=== PATIENT | male | born 2000 | race Caucasian/White ===

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

== ENCOUNTER 2021-07-07 06:49 | Emergency (ER) | payer BC, SELFPAY ==
[2021-07-07 07:08] VITALS: BP 142/83; PULSE 75; RESP 18; TEMP 37.1; O2SAT 96; BMI 25.1
--- NOTE | 2021-07-07 07:13 | XR_ITS ---
PROCEDURE INFORMATION: Exam: XR Chest Exam date and time: 07/07/2021 7:13 AM Age: 20 years old Clinical indication: Cough; Additional info: Cough x 3 days. Headache. PT had covid back in oct TECHNIQUE: Imaging protocol: XR of the chest. Views: 2 views. COMPARISON: CR XR SHOULDER RT MIN 2V 03/23/2019 2:45 PM FINDINGS: Lungs: Hyperinflation, without acute airspace disease. Pleural spaces: No pleural effusion. Heart/Mediastinum: Normal configuration of the heart. Bones/joints: Unremarkable. IMPRESSION: No acute airspace or pleural disease.
[2021-07-07 07:27] LABS: Coronavirus 19, PCR Not Detected (NotDetected); Influenza B, PCR Not Detected (NotDetected)
[2021-07-07 07:30] LABS: Basophils % 0.4 % (0.1-2.0); Eosinophils # 0.1 K/mm3 (0.0-0.4); Eosinophils % 1.2 % (0.1-12.0); Hematocrit 43.4 % (42.0-52.0); Lymphocytes # 0.6 K/mm3 (0.7-4.5); Lymphocytes % 11.7 % (10-50); Mean Corpuscular HGB Conc 34.5 g/dL (31.8-35.4); Mean Corpuscular Hemoglobin 30.6 pg (27.0-31.2); Mean Corpuscular Volume 88.6 fl (80-94); Mean Platelet Volume 7.3 fl (7.4-10.4); Monocytes # 0.5 K/mm3 (0.1-1.0); Monocytes % 9.1 % (1.7-9.3); Neutrophils # 4.2 K/mm3 (1.8-7.8); Neutrophils % 77.6 % (37.0-80.0); Platelet Count 264 K/mm3 (142-424); Red Cell Distribution Width 12.6 % (11.5-17.5); White Blood Count 5.4 K/mm3 (4.5-13.0)
--- NOTE | 2021-07-07 07:36 | PC.NURSE ---
Pt is resting comfortably in bed.
--- NOTE | 2021-07-07 07:37 | PC.NURSE ---
pt to rad.
[2021-07-07 07:38] LABS: Chloride 103 mmol/L (98-107); Potassium 3.7 mmoL/L (3.5-5.1); Sodium 137 mmol/L (136-145)
[2021-07-07 07:40] LABS: Blood Urea Nitrogen 11 mg/dl (9-20)
[2021-07-07 07:41] LABS: Alanine Aminotransferase 14 U/L (12-78); Albumin Level 4.6 g/dl (3.5-5.0); Albumin/Globulin Ratio 1.6 (1.1-1.8); Alkaline Phosphatase 114 U/L (38-126); Anion Gap 14.7 mEq/L (5-15); Aspartate Amino Transferase 26 U/L (17-59); Bilirubin,Total 0.9 mg/dl (0.2-1.3); Calcium 8.9 mg/dl (8.4-10.2); Carbon Dioxide 23 mmol/L (22.0-30.0); Creatinine Clearance Estimated 129 mL/min (50-200); Estimated Glomerular Filt Rate 95 ml/min (>60); GFR (African American) 115 ML/MIN (>60); Globulin 2.9 g/dL (1.3-3.2); Glucose 104 mg/dl (74-100); Total Protein,Serum 7.5 g/dl (6.3-8.2)
[2021-07-07 07:51] LABS: Influenza A, PCR Detected (NotDetected)
--- NOTE | 2021-07-07 08:04 | HMH.EDGENADL ---
ED Disposition Clinical Impression: Influenza A Disposition: Home, Self-Care Condition on Discharge: Fair Instructions: DI for Influenza -- Adult Additional Instructions: Tamiflu as prescribed. Tylenol or ibuprofen for pain and fever. Rest and drink plenty of fluids. Isolate yourself for 4 to 5 days from the onset of illness and until you have had no fever for 24 hours. Follow-up with your primary care provider if not improving in 4 to 5 days or if worsening symptoms such as shortness of breath or persistent vomiting. Prescriptions: Oseltamivir Phosphate [Tamiflu 75mg Capsule] 75 mg PO BID #10 cap Transmission Status: [facility] Referrals: Provider,Referral, [Primary Care Provider] - - Critical Care Critical Care Time: No Attestation: On 07/07/21, the high probability of a clinically significant, sudden or life threatening deterioration of the following system(s) required my full and direct attention, intervention and personal management. The time I documented below is in addition to time spent performing reported procedures but includes the following listed in this critical care notation. Medical Decision Making - Vik Inquiry Pt receiving controlled substance: No Vital Signs: 07/07/21 07:08 Temperature 98.7 F Temperature Source Oral Pulse Rate [Right Radial] 75 Respiratory Rate 18 Blood Pressure [Right Arm] 142/83 H Blood Pressure Mean [Right Arm] 102 02 Sat by Pulse Oximetry 96 Oxygen Delivery Method Room Air - Lab Data Lab Results 07/07/21 07:14: WBC 5.4, RBC 4.90, Hgb 15.0, Hct 43.4, MCV 88.6, MCH 30.6, MCHC 34.5, RDW 12.6, Plt Count 264, MPV 7.3 L, Neut % (Auto) 77.6, Lymph % (Auto) 11.7, [place] % (Auto) 9.1, Eos % (Auto) 1.2, Baso % (Auto) 0.4, Neut # (Auto) 4.2, Lymph # (Auto) 0.6 L, [place] # (Auto) 0.5, Eos # (Auto) 0.1, Baso # (Auto) 0.0 07/07/21 07:14: Sodium 137, Potassium 3.7, Chloride 103, Carbon Dioxide 23, Anion Gap 14.7, BUN 11, Creatinine 1.00, Estimated Creat Clear 129, Estimated GFR 95, Est GFR ( Amer) 115, Glucose 104 H, Calcium 8.9, Total Bilirubin 0.9, AST 26, ALT 14, Alkaline Phosphatase 114, Total Protein 7.5, Albumin 4.6, Globulin 2.9, Albumin/Globulin Ratio 1.6 07/07/21 07:14: SARS-CoV-2 (PCR) Not detected, Influenza A Untype (PCR) Detected A, Influenza Type B (PCR) Not detected Result diagrams: 07/07/21 07:14 07/07/21 07:14 Orders (Tests/Meds): ORDERS Category Date Time Status Chest XR 2 view (NOT portable) [XR chest 2V] Stat Exams 07/07/21 07:13 Taken General Adult HPI - General Chief complaint: Upper Respiratory Infection Stated complaint: Weakness;body aches;cough;runny nose Time Seen by Provider: 07/07/21 08:04 Mode of Arrival: Ambulatory Limitations: No Limitations Description of Symptoms (Recalled from ER Triage Doc. by RN): pt to ed c/o headache, congestion, productive cough, and a sore throat since tuesday. pt denies soa or cp. pt denoes fevers. pt denies n/v/d and abd pain. - History of Present Illness HPI narrative: States I think I have the flu . Symptoms came on on 07/05/2021. He says he saw [place] on Tuesday night and sat next to somebody who was doing a lot of coughing. He was not vaccinated against influenza this year. He has not been exposed to any specific illnesses such as COVID-19. His main complaints are headache, body aches, dry cough, and dry throat. Nausea but no vomiting or diarrhea. - Related Data Previous Rx's Medication Instructions Recorded Azithromycin [Z-German 250mg Tab*] 250 mg PO UD DOSE PK #6 tab 08/16/19 Fluticasone Propionate [Flonase 1 spr NS DAILY #1 bottle 08/16/19 50mcg nasal spray 16gm] methylPREDNISolone [Medrol 4mg 4 mg PO DIRECTED #21 tab 08/16/19 tab] Oseltamivir Phosphate [Tamiflu 75 mg PO BID #10 cap 07/07/21 75mg Capsule] Allergies Allergy/AdvReac Type Severity Reaction Status Date / Time No Known Allergies Allergy Pedro
[2021-07-07 08:31] VITALS: BP 127/70; PULSE 68; RESP 18; TEMP 37.2; O2SAT 98
== END 2021-07-07 08:31 | disposition home or self-care (01) ==
PROVIDERS: Emergency Medicine; Emergency Provider Emergency Medicine
DX: J10.1 Influenza due to other identified influenza virus with other respiratory manifestations (principal); Z20.822 Contact with and (suspected) exposure to COVID-19
CPT/HCPCS: 71046; 80053; 85025; 96374; 99283; C9803; U0003; U0005

== ENCOUNTER 2021-09-08 11:52 | Emergency (ER) | payer OTHER, SELFPAY ==
--- NOTE | 2021-09-08 12:14 | XR_ITS ---
FINAL REPORT CLINICAL HISTORY: pain...shielded...no trauma FINDINGS: RIGHT ANKLE: Three views of the right ankle were obtained. There is no acute fracture or dislocation. The joint spaces and mortise are intact. There is no soft tissue abnormality. IMPRESSION: No acute process. Reviewed, Interpreted and Dictated by Mario Noel MD Transcribed by Quinton Broussard Authenticated by Mario Noel MD on 09/08/2021 01:31:[address] [facility]
--- NOTE | 2021-09-08 12:14 | XR_ITS ---
FINAL REPORT CLINICAL HISTORY: pain..no trauma shielded FINDINGS: 3 views of the right foot were obtained. There is no acute fracture or dislocation. The joint spaces are intact. The soft tissues are unremarkable. IMPRESSION: No acute process. Reviewed, Interpreted and Dictated by Mario Noel MD Transcribed by Quinton Broussard Authenticated by Mario Noel MD on 09/08/2021 01:31:[address] [facility]
[2021-09-08 12:17] VITALS: BP 142/68; PULSE 58; RESP 14; TEMP 37.3; O2SAT 97; BMI 25.1
--- NOTE | 2021-09-08 12:23 | HMH.EDUTC ---
[facility] [place] Clinical Impression: Right foot pain Disposition: Home, Self-Care Condition on Discharge: Good Instructions: DI for Metatarsalgia, DI for Foot Pain Additional Instructions: Rest the extremity, Elevate the extremity as tolerated while you are resting. Take ibuprofen for pain. I sent in a prescription to your pharmacy. Follow up with Dr. Ambrocio (podiatry). Sometimes there can be fractures that don't show up well on the first set of x-rays. So, you should follow up if you continue to have symptoms. I put in a referral but you need to call his office and schedule an appointment. Follow up with your regular doctor. GO TO THE ER FOR ANY WORSENING SYMPTOMS Prescriptions: Ibuprofen [Ibuprofen 600mg Tablet] 600 mg PO Q6HP PRN #30 tab PRN Reason: Mild Pain Transmission Status: [facility] Referrals: Provider,Referral, [Primary Care Provider] - Emily Ambrocio DPM [Staff Physician] - Forms: Work/School Release Time of Disposition: 13:17 Medical Decision Making - Medical Records Medical records reviewed: No: I reviewed the patient's medical records. - Vik Inquiry Pt receiving controlled substance: No Vital Signs: 09/08/21 12:17 Temperature 99.1 F Temperature Source Oral Pulse Rate [Left] 58 L Respiratory Rate 14 Blood Pressure [Right Arm] 142/68 H Blood Pressure Mean [Right Arm] 92 02 Sat by Pulse Oximetry 97 Orders (Tests/Meds): ORDERS Category Date Time Status Ankle XR -Right minimum 3 Views [XR ankle RT min 3V] Exams 09/08/21 12:14 Taken Stat XR foot RT min 3V Stat Exams 09/08/21 12:14 Taken - Radiology Data #1 Image(s): Foot/Toes Image Reviewed: Yes I reviewed the patient's radiology image, Yes I have reviewed radiologist's interpretation Preliminary Findings: Normal/NAD #2 Image(s): Ankle Image Reviewed: Yes I reviewed the patient's radiology image, Yes I have reviewed radiologist's interpretation Preliminary Findings: Normal/NAD [facility] [place] - General Stated complaint: rt foot/ankle pain no accident Time Seen by Provider: 09/08/21 12:23 Mode of Arrival: Ambulatory Source of Information: Patient Limitations: No Limitations Description of Symptoms (Recalled from Triage Doc. by RN): pt states she woke up about two weeks ago with R outer foot pain. 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 pt states the pain is getting worse. HEENT Symptoms (Recalled from RN notes): No Resp Symptoms (Recalled from RN notes): No Skin Symptoms (Recalled from RN notes): No MS Symptoms (Recalled from RN notes): Yes Functional Status (Recalled from RN notes): wnl - History of Present Illness Provider Complaint: He states that he has had right foot pain intermittently for the past 2 weeks. He denies any known injury. Having to walk a lot at school makes his pain worse. He denies any history of similar issues. - Related Data Previous Rx's Medication Instructions Recorded Azithromycin [Z-German 250mg Tab*] 250 mg PO UD DOSE PK #6 tab 08/16/19 Fluticasone Propionate [Flonase 1 spr NS DAILY #1 bottle 08/16/19 50mcg nasal spray 16gm] methylPREDNISolone [Medrol 4mg 4 mg PO DIRECTED #21 tab 08/16/19 tab] Oseltamivir Phosphate [Tamiflu 75 mg PO BID #10 cap 07/07/21 75mg Capsule] Ibuprofen [Ibuprofen 600mg 600 mg PO Q6HP PRN #30 tab 09/08/21 Tablet] Allergies Allergy/AdvReac Type Severity Reaction Status Date / Time No Known Allergies Allergy Verified 11/13/18 08:43 - Worker's Comp Is this a Worker's Comp case?: No H History - Hepatitis A Screen Drug use history?: No High risk sexual behaviors?: No History of sexually transmitted infection?: No Currently employed?: No Childcare worker?: No Do you have indoor plumbing?: Yes Do you have electricity?: Yes Attestation statement:: This patient has been screened for Hepatitis A risk factors. I have reviewed the patient's past medical
[2021-09-08 13:26] VITALS: BP 142/68; PULSE 58; RESP 14; TEMP 37.3
== END 2021-09-08 13:27 | disposition home or self-care (01) ==
PROVIDERS: Emergency Provider Nurse Practitioner Family
DX: M79.671 Pain in right foot (principal)
CPT/HCPCS: 73610; 73630; 99202; G0463

== ENCOUNTER 2022-03-10 13:48 | Emergency (ER) | payer OTHER, SELFPAY ==
[2022-03-10 15:01] VITALS: BP 110/75; PULSE 71; RESP 19; TEMP 36.9; O2SAT 100
--- NOTE | 2022-03-10 15:17 | EXP.UTC ---
Discharge Plan Disposition Patient Disposition: Home, Self-Care Condition: Good Prescriptions Prescriptions: New [id number] [Bromfed DM] 2-30-10 mg/5 mL Syrup 10 ml PO Q4H PRN (Reason: Cough) Qty: 240 0RF No Action ibuprofen 600 MG tablet 600 mg PO Q6HP PRN (Reason: Mild Pain) Qty: 30 0RF azithromycin 250 MG tablet 250 mg PO UD DOSE PK Qty: 6 0RF Rx Instructions: Take two (2) tablets today, then one (1) tablet days #2 thru #5 methylprednisolone 4 MG tablet 4 mg PO DIRECTED Qty: 21 0RF Rx Instructions: Take as directed on package instructions fluticasone propionate 120 SPR/BOT bottle 1 spr NS DAILY Qty: 1 0RF Rx Instructions: each nostril daily oseltamivir 75 MG capsule 75 mg PO BID Qty: 10 0RF Referrals Follow up/Referrals: Provider,Referral, MD [Primary Care Provider] - Enter time for follow up Activity Restrictions/Add. Instructions Additional Instructions/Restrictions: *Monitor Temp, Over the counter Motrin or Tylenol as directed/as needed Tylenol every 4 hours and Motrin every 6 hours (as long as your family doctor has told you that you can take it) for fever or pain. and straight to ER if unable to lower temp less than 101.0 after medication given *Warm salt water gargles may help to soothe the throat *Throat Lozenges? *Warm fluids like tea with honey may help to soothe the throat? *Sleep elevated *Humidifier/Vaporizer *Bromfed may cause drowsiness. Know how it effects you (your child) before driving, caring for small child, or sending your child to school. Not other antihistamines/allergy medications while taking bromfed Follow up IMMEDIATELY for new or worsening symptoms or no Noticeable improvement over the next 48-72 hours. 911 for difficulty breathing or swallowing You were tested for today for COVID19 your test result should be back in the next 24-48 hours, you may check your result on the [facility] Portal Make sure to take your Vitamins Vit. C Vit D and Zinc if you can take them Clinical Impressions Clinical Impression: Viral upper respiratory tract infection with cough, Cough Stand Alone Forms Stand Alone Forms: [facility] School Release, [facility] Work Release Discharge ED Provider: Yuly Weaver [facility] [place] HPI General Stated complaint: cough congestion Time Seen by Provider: 03/10/22 15:10 Mode of Arrival: Ambulatory Source of Information: Patient Limitations: No Limitations Description of Symptoms (Recalled from Triage Doc. by RN): patient comes in with complaints of cough, bodyaches, fever since last night. 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 but unsure if he was exposed to COVID or anything but today he was feeling worse and unable to attend his classes Related Data Previous Rx's Medication Instructions Recorded azithromycin 250 mg tablet 250 mg PO UD DOSE PK #6 tabs 08/16/19 fluticasone propionate 50 1 spr NS DAILY ##1 08/16/19 mcg/actuation nasal spray,suspension methylprednisolone 4 mg tablet 4 mg PO DIRECTED #21 tabs 08/16/19 oseltamivir 75 mg capsule 75 mg PO BID #10 caps 07/07/21 ibuprofen 600 mg tablet 600 mg PO Q6HP PRN Mild Pain #30 09/08/21 tabs [id number] 10 ml PO Q4H PRN Cough #240 mL 03/10/22 2 mg-30 mg-10 mg/5 mL oral syrup (Bromfed DM) Allergies Allergy/AdvReac Type Severity Reaction Status Date / Time No Known Allergies Allergy Verified 03/10/22 15:07 Worker's Comp Is this a Worker's Comp case?: No [facility] (System 11/13/18 @ 0
[2022-03-10 15:18] LABS: UTC Influenza A Antigen Negative (Negative); UTC Influenza B Antigen Negative (Negative)
[2022-03-10 16:01] VITALS: BP 110/75; PULSE 71; RESP 19; TEMP 36.9
== END 2022-03-10 16:07 | disposition home or self-care (01) ==
PROVIDERS: Emergency Provider Nurse Practitioner
DX: U07.1 COVID-19 (principal)
CPT/HCPCS: 87804; 99212; C9803; G0463; U0003; U0005

== ENCOUNTER 2022-03-15 13:46 | Emergency (ER) | payer OTHER, SELFPAY ==
[2022-03-15 14:52] VITALS: BP 0/0; PULSE 0; RESP 0; TEMP -17.7; TEMP 0
== END 2022-03-15 17:05 | disposition left against medical advice (07) ==
LOC: UTC 13:48
PROVIDERS: Emergency Provider Nurse Practitioner
DX: U07.1 COVID-19 (principal); Z53.21 Procedure and treatment not carried out due to patient leaving prior to being seen by health care provider